=== PATIENT | female | born 2005 | race Caucasian/White ===

== ENCOUNTER 2023-04-09 10:38 | Outpatient (REF) | payer OTHER, SELFPAY ==
--- NOTE | ~2023-04-09 | CT_ITS ---
EXAMINATION: CT CHEST WITHOUT CONTRAST CLINICAL INFORMATION: Segmental somatic dysfunction of rib cage COMPARISON: None available. TECHNIQUE: Multidetector volumetric CT imaging of the chest was done. Axial MIP volume rendering provided. Sagittal and coronal reformatted images were obtained. This CT examination was performed using dose optimization techniques as appropriate, variously including the following: *Automated exposure control *Adjustment of mA and/or kV according to patient size (this includes techniques or standardized protocols for targeted exams where dose is matched to indication/reason for exam; i.e. extremities or head) *Use of iterative reconstruction technique DLP: 220 mGy-cm FINDINGS: LUNGS/PLEURA: No focal consolidation. No large or suspicious pulmonary nodules or masses are noted. Central airways are patent. No pneumothorax. No large pleural effusion. MEDIASTINUM: Heart is not enlarged. No pericardial effusion. No coronary artery calcifications. There is nonaneurysmal. Main pulmonary artery is not enlarged. No enlarged lymph nodes per size criteria. Visualized portions of the thyroid are unremarkable. AXILLA: No lymphadenopathy. UPPER ABDOMEN: Unremarkable. OSSEOUS STRUCTURES: Unremarkable. CT/CT chest wo IV con IMPRESSION: No acute process of the chest identified.
== END 2023-04-09 10:39 | disposition home or self-care (01) ==
LOC: HO.CT 10:38
PROVIDERS: Visit Provider Family Medicine
DX: M99.08 Segmental and somatic dysfunction of rib cage (principal)
CPT/HCPCS: 71250

== ENCOUNTER 2025-01-28 19:20 | Outpatient (REF) | payer OTHER, SELFPAY ==
--- NOTE | ~2025-01-28 | MR_ITS ---
CLINICAL HISTORY: LBP MR lumbar spine without gadolinium Comparison: None Findings: No acute fracture or pathologic bone lesion. Cauda equina and conus medullaris within normal limits. L4-5: Left neural foramen disc protrusion 0.2 cm AP by 0.6 cm transverse, axial image number 37 of 52 series 9 with minimal central canal stenosis, mild bilateral neural foraminal stenosis. L5-S1: Grade 1 retrolisthesis of L5 over S1. Paraspinous musculature intact. The filum terminale located at L1-2. IMPRESSION: 1. Grade 1 retrolisthesis of L5 over S1. 2. Left neural foramen disc protrusion at L4-5 measuring 0.2 cm AP by 0.6 cm transverse, with minimal central canal stenosis and mild bilateral neural foraminal stenosis. 3. No acute fracture or pathologic bone lesion. This document has been electronically signed by: Jaspreet Renee MD on 01/28/2025 20:37:11
== END 2025-01-28 19:21 | disposition home or self-care (01) ==
LOC: HO.MRI 19:20
PROVIDERS: Visit Provider Family Medicine
DX: M54.50 Low back pain, unspecified (principal)
CPT/HCPCS: 72148

== ENCOUNTER → 2025-01-28 19:35 | Outpatient (BNV) | payer OTHER, SELFPAY | PROVIDERS: Visit Provider Radiology Diagnostic Radiology | DX: M43.17 Spondylolisthesis, lumbosacral region (principal); M54.50 Low back pain, unspecified | CPT/HCPCS: 72148 ==